=== PATIENT | male | born 1990 | race Hispanic/Latino ===

== ENCOUNTER 2018-06-19 18:03 | Emergency (ER) | payer OTHER ==
[~2018-06-19] VITALS: Ht 162.6 cm; Wt 82.3 kg
[2018-06-19] MEDS ORDERED: MOTRIN600 MG PO (18:46)
[2018-06-19] MEDS ORDERED: CLEOCIN300 MG PO (18:46)
[2018-06-19] MEDS ORDERED: KEFLEX500 MG PO (18:47)
[2018-06-19] MEDS ORDERED: BACTRIM,SEPT1 TABLET PO (18:47)
[2018-06-19 19:42] VITALS: BP 121/74
== END 2018-06-19 19:45 | disposition home or self-care (01) ==
LOC: EME 18:03
DX: S70.361A Insect bite (nonvenomous), right thigh, initial encounter (principal); L03.115 Cellulitis of right lower limb; W57.XXXA Bitten or stung by nonvenomous insect and other nonvenomous arthropods, initial encounter
CPT/HCPCS: 99281; 99284